=== PATIENT | female | born 1965 | race Caucasian/White ===

== ENCOUNTER 2017-03-25 15:41 | Emergency (ER) | payer MEDICARE, MEDICAID ==
[2017-03-25 15:43] VITALS: BP 119/73; PULSE 76; RESP 16; TEMP 98.1; O2SAT 99
[2017-03-25 16:35] LABS: AUTOMATED NEUTROPHIL # 3.7 TH/MM3 (1.8-7.7); BASOPHIL % 0.8 % (0.0-2.0); EOSINOPHIL # 0.2 TH/MM3 (0-0.4); EOSINOPHIL % 2.6 % (0.0-4.0); HEMATOCRIT 40.8 % (35.0-46.0); HEMO FLAGS DIFF FINAL; LYMPH % 28.6 % (9.0-44.0); LYMPHOCYTE # 1.8 TH/MM3 (1.0-4.8); MEAN CELL VOLUME 86.8 FL (80.0-100.0); MEAN CORPUSCULAR HEMOGLOBIN 28.9 PG (27.0-34.0); MEAN CORPUSCULAR HGB CONC 33.3 % (32.0-36.0); PLATELET COUNT 236 TH/MM3 (150-450); RED CELL DISTRIBUTION WIDTH 13.4 % (11.6-17.2); WHITE BLOOD COUNT 6.1 TH/MM3 (4.0-11.0)
[2017-03-25 16:45] LABS: BLOOD, URINE NEG (NEG); GLUCOSE,URINE NEG (NEG); KETONE, URINE NEG (NEG); NITRITE,URINE NEG (NEG); SQUAMOUS EPITHELIAL CELL URINE <1 /hpf (0-5); URINE COLOR LIGHT-YELLOW (YELLW/STRAW)
[2017-03-25 16:48] LABS: COMMENT (UR) CULT NOT INDICATED; CULTURE IF INDICATED CULT NOT INDICATED
[2017-03-25 17:11] LABS: ANION GAP 6 MEQ/L (5-15); BICARBONATE 30.1 MEQ/L (21.0-32.0); BLOOD UREA NITROGEN 17 MG/DL (7-18); CHLORIDE 103 MEQ/L (98-107); GLOMERULAR FILTRATION RATE 53 ML/MIN (>89); POTASSIUM 4.2 MEQ/L (3.5-5.1); SODIUM (NA) 139 MEQ/L (136-145)
[2017-03-25 17:16] LABS: ALCOHOL LESS THAN 3 MG/DL (0-5)
--- NOTE | 2017-03-25 17:17 | PD ---
HPI Chief Complaint: Anxiety Time Seen by Provider: 17:13 Travel History International Travel<30 days: No Contact w/Intl Traveler<30days: No Traveled to known affect area: No History of Present Illness HPI 52-year-old female with history of bipolar disorder here for evaluation of insomnia, racing thoughts, depression, possible aristides. The patient has not been on any antipsychotic medications for a couple of years. She states that there is a lot going on in her life right now and this may be causing it. Other than that she has no physical complaints. She is not suicidal or homicidal. PFSH Past Medical History Anemia: Yes Bipolar Disorder: Yes Depression: Yes Cancer: No Cardiovascular Problems: No Diabetes: No Diminished Hearing: No Headaches: No Psychiatric: Yes (Schizoaffective Disorder) Seizures: No Menopausal: Yes Past Surgical History Eye Surgery: Yes ( A CHILD) Social History Alcohol Use: Yes Tobacco Use: No Substance Use: Yes Allergies-Medications (Allergen,Severity, Reaction): Coded Allergies: No Known Allergies (Unverified , 10/13/15) Reported Meds & Prescriptions Reported Meds & Active Scripts Active No Active Prescriptions or Reported Medications Review of Systems Except as stated in HPI: all other systems reviewed are Neg Physical Exam Narrative GENERAL: Well-developed, well-nourished, comfortable, no apparent distress. SKIN: Focused skin assessment warm/dry. HEAD: Atraumatic. Normocephalic. EYES: Pupils equal and round. No scleral icterus. No injection or drainage. ENT: Mucous membranes pink and moist. Normal pharynx. Normal external auditory canals and tympanic membranes bilaterally. NECK: Trachea midline. No JVD. CARDIOVASCULAR: Regular rate and rhythm. RESPIRATORY: No accessory muscle use. Clear to auscultation. Breath sounds equal bilaterally. GASTROINTESTINAL: Abdomen soft, non-tender, nondistended. MUSCULOSKELETAL: No obvious deformities. No clubbing. No cyanosis. No edema. NEUROLOGICAL: Awake and alert. No obvious cranial nerve deficits. Motor grossly within normal limits. Normal speech. PSYCHIATRIC: Appropriate mood and affect; insight and judgment normal. Data Data Last Documented VS Vital Signs Date Time Temp Pulse Resp B/P (MAP) Pulse Ox O2 Delivery O2 Flow Rate FiO2 03/25/17 15:43 98.1 76 16 119/73 (88) 99 Orders Orders Complete Blood Count With Diff (03/25/17 16:01) Basic Metabolic Panel (Bmp) (03/25/17 16:01) Urinalysis - C+S If Indicated (03/25/17 16:01) Psych Screen (03/25/17 16:01) Drug Screen, Random Urine (03/25/17 16:01) Alcohol (Ethanol) (03/25/17 16:01) Labs Laboratory Tests Test 03/25/17 16:07 03/25/17 16:10 White Blood Count 6.1 TH/MM3 Red Blood Count 4.70 MIL/MM3 Hemoglobin 13.6 GM/DL Hematocrit 40.8 % Mean Corpuscular Volume 86.8 FL Mean Corpuscular Hemoglobin 28.9 PG Mean Corpuscular Hemoglobin Concent 33.3 % Red Cell Distribution Width 13.4 % Platelet Count 236 TH/MM3 Mean Platelet Volume 8.6 FL Neutrophils (%) (Auto) 61.0 % Lymphocytes (%) (Auto) 28.6 % Monocytes (%) (Auto) 7.0 % Eosinophils (%) (Auto) 2.6 % Basophils (%) (Auto) 0.8 % Neutrophils # (Auto) 3.7 TH/MM3 Lymphocytes # (Auto) 1.8 TH/MM3 Monocytes # (Auto) 0.4 TH/MM3 Eosinophils # (Auto) 0.2 TH/MM3 Basophils # (Auto) 0.0 TH/MM3 CBC Comment DIFF FINAL Differential Comment Blood Urea Nitrogen 17 MG/DL Creatinine 1.07 MG/DL Random Glucose 95 MG/DL Calcium Level 8.9 MG/DL Sodium Level 139 MEQ/L Potassium Level 4.2 MEQ/L Chloride Level 103 MEQ/L Carbon Dioxide Level 30.1 MEQ/L Anion Gap 6 MEQ/L Estimat Glomerular Filtration Rate 53 ML/MIN Ethyl Alcohol Level LESS THAN 3 MG/DL Urine Color LIGHT-YELLOW Urine Turbidity CLEAR Urine pH 5.0 Urine Specific [place] 1.009 Urine Protein NEG mg/dL Urine Glucose (UA) NEG mg/dL Urine Ketones NEG mg/dL Urine Occult Blood NEG Urine Nitrite NEG Urine Bilirubin NEG Urine Urobilinogen LESS THAN 2.0 MG/DL Urine Leukocyte Esterase NEG Urine RBC LESS THAN 1 /hpf Urine WBC LESS THAN 1 /hpf Urine Squamous Epithelial Cells <1 /hpf Microscopic Urinalysis Comment CULT NOT INDICATED Urine Opiates Screen NEG Urine Barbiturates Screen NEG Urine Amphetamines Screen POS Urine Benzodiazepines Screen NEG Urine Cocaine Screen POS Urine Cannabinoids Screen POS MDM Medical Decision Making Medical Screen Exam Complete: Yes Emergency Medical Condition: Yes Differential Diagnosis Bipolar disorder, aristides, depression Narrative Course Vitals are within normal limits. Labs reviewed. UDS is positive for cocaine, amphetamines, cannabinoids. The patient is medically cleared for psychiatric eval and dispo by them Diagnosis Primary Impression: Bipolar 1 disorder Additional Impression: Polysubstance abuse Admitting Information Admitting Physician Requests: Observation Scripts No Active Prescriptions or Reported Meds Livan Morel MD Mar 25, 2017 17:17
[2017-03-25 18:50] VITALS: BP 132/66; PULSE 54; RESP 18; TEMP 98.7; O2SAT 99
[2017-03-26 06:35] VITALS: BP 158/69; PULSE 62; RESP 18; O2SAT 97
[2017-03-26 09:07] VITALS: BP 158/69; PULSE 62; RESP 18; O2SAT 97
[2017-03-26] MEDS ORDERED: PROZ20CA11 PO (09:19)
[2017-03-26] MEDS ORDERED: LITH300C2 PO (09:20)
--- NOTE | 2017-03-26 09:38 | PD ---
Physical Exam Date Seen by Provider: Mar 26, 2017 Time Seen by Provider: 09:36 Narrative Well-developed well-nourished 52-year-old female patient that is psychiatrically cleared for discharge. I was asked to disposition this patient. Data Data Last Documented VS Vital Signs Date Time Temp Pulse Resp B/P (MAP) Pulse Ox O2 Delivery O2 Flow Rate FiO2 03/26/17 09:08 03/26/17 09:07 62 18 97 Room Air 03/25/17 18:50 98.7 Orders Orders Complete Blood Count With Diff (03/25/17 16:01) Basic Metabolic Panel (Bmp) (03/25/17 16:01) Urinalysis - C+S If Indicated (03/25/17 16:01) Psych Screen (03/25/17 16:01) Drug Screen, Random Urine (03/25/17 16:01) Alcohol (Ethanol) (03/25/17 16:01) Diet Regular Basic (03/26/17 Breakfast) Labs Laboratory Tests Test 03/25/17 16:07 03/25/17 16:10 White Blood Count 6.1 TH/MM3 Red Blood Count 4.70 MIL/MM3 Hemoglobin 13.6 GM/DL Hematocrit 40.8 % Mean Corpuscular Volume 86.8 FL Mean Corpuscular Hemoglobin 28.9 PG Mean Corpuscular Hemoglobin Concent 33.3 % Red Cell Distribution Width 13.4 % Platelet Count 236 TH/MM3 Mean Platelet Volume 8.6 FL Neutrophils (%) (Auto) 61.0 % Lymphocytes (%) (Auto) 28.6 % Monocytes (%) (Auto) 7.0 % Eosinophils (%) (Auto) 2.6 % Basophils (%) (Auto) 0.8 % Neutrophils # (Auto) 3.7 TH/MM3 Lymphocytes # (Auto) 1.8 TH/MM3 Monocytes # (Auto) 0.4 TH/MM3 Eosinophils # (Auto) 0.2 TH/MM3 Basophils # (Auto) 0.0 TH/MM3 CBC Comment DIFF FINAL Differential Comment Blood Urea Nitrogen 17 MG/DL Creatinine 1.07 MG/DL Random Glucose 95 MG/DL Calcium Level 8.9 MG/DL Sodium Level 139 MEQ/L Potassium Level 4.2 MEQ/L Chloride Level 103 MEQ/L Carbon Dioxide Level 30.1 MEQ/L Anion Gap 6 MEQ/L Estimat Glomerular Filtration Rate 53 ML/MIN Ethyl Alcohol Level LESS THAN 3 MG/DL Urine Color LIGHT-YELLOW Urine Turbidity CLEAR Urine pH 5.0 Urine Specific [place] 1.009 Urine Protein NEG mg/dL Urine Glucose (UA) NEG mg/dL Urine Ketones NEG mg/dL Urine Occult Blood NEG Urine Nitrite NEG Urine Bilirubin NEG Urine Urobilinogen LESS THAN 2.0 MG/DL Urine Leukocyte Esterase NEG Urine RBC LESS THAN 1 /hpf Urine WBC LESS THAN 1 /hpf Urine Squamous Epithelial Cells <1 /hpf Microscopic Urinalysis Comment CULT NOT INDICATED Urine Opiates Screen NEG Urine Barbiturates Screen NEG Urine Amphetamines Screen POS Urine Benzodiazepines Screen NEG Urine Cocaine Screen POS Urine Cannabinoids Screen POS MDM Supervised Visit with SABRA: Yes Differential Diagnosis Depression versus suicidal ideation versus anxiety versus adjustment disorder versus mood disorder versus bipolar disorder versus schizophrenia versus paranoid disorder versus psychosis versus substance abuse versus alcohol abuse versus alcohol induced psychosis versus homicidality addition versus cutting versus personality disorder Narrative Course 52-year-old female patient in no acute distress denies any physiological complaints at this time. Psychiatrically cleared for discharge. Dr. Burden refilled patient's psychiatric prescriptions. Patient planning to follow up with her personal psychiatrist. He is planning to go to her son's house upon discharge and spend time with her grandson. She states she is not going to go back to the drug house and she will go to support meetings regularly. Patient will be discharged home with this plan of care. Diagnosis Primary Impression: Bipolar 1 disorder Additional Impression: Polysubstance abuse Referrals: [facility] (Out patient) as needed Medication Management [facility] as needed Mental Health and Substance Abuse inpatient facility [facility] Patient Instructions: General Instructions, Bipolar Disorder (ED), Medical Clearance for Psychiatric Care (ED) Departure Forms: Tests/Procedures Additional Instruction: DX: Bipolar Please return to ED if symptoms worsen. Scripts [place] Carbonate ([place] Carbonate) 300 Mg Cap 300 MG PO TID, #90 CAP 0 Refills Prov: Marito Burden MD 03/26/17 Fluoxetine (Prozac) 20 Mg Cap 20 MG PO DAILY, #30 CAP 0 Refills Prov: Marito Burden MD 03/26/17 Disposition: 01 DISCHARGE HOME Condition: Stable Yissel Smith DEVELOPMENTAL MATHEMATICS PROFESSOR Mar 26, 2017 09:38
--- NOTE | 2017-03-26 12:25 | PD ---
History of Present Illness Chief Complaint: Anxiety Time Seen by Provider: 09:15 Travel History International Travel<30 Days: No Contact w/Intl Traveler<30days: No Known affected area: No Legal Status Legal Status: Voluntary History of Present Illness: 52-year-old female came in voluntarily last night to be placed back on her psychotropic medicines and/or admitted. Patient is not however suicidal or homicidal or psychotic. She reports a history of bipolar disorder but she has been using multiple substances. At the time of this evaluation, the patient was demonstrating no psychotic symptoms. It is difficult for this physician to ascertain whether the patient truly has bipolar disorder or is simply reflecting the results of her multiple drug abuse issues. In either event, the patient denies any suicidal or homicidal ideation, plan or intent. She is verbally amilcar for safety and she is competent to do so. She is requesting refills on lithium and Prozac and this physician agrees. She will seek follow up at [facility]. [facility] Past Medical History Anemia: Yes Bipolar Disorder: Yes Depression: Yes Cancer: No Cardiovascular Problems: No Diabetes: No Diminished Hearing: No Headaches: No Psychiatric: Yes (Schizoaffective Disorder) Seizures: No ?: Not Menopausal: Yes Past Surgical History Eye Surgery: Yes ( A CHILD) Psychiatric History Psychiatric History Hx Psychiatric Treatment: HX OF DEPRESSION, BIPOLAR D/O AND SCHIZOAFFECTIVE D/O. LAST ADMISSION WAS TO THE [facility] LAST YEAR. REPORTS THAT IT WAS NOT A GOOD EXPERIENCE AND SHE STAYED A WEEK. DID NOT LIKE TAKING THE SEROQUEL PRESCRIBED. IN THE PAST HAD BEEN ADMITTED TO [place]. FEELS THAT IT WAS ABETTER EXPERIENCE BUT THE LATUDA MADE HER FEEL NAUSEOUS. HAS BEEN ON PROZAC AND LITHIUM IN THE PAST. History of Inpatient Treatment: Yes Guns or firearms in home: No Social History Hx Alcohol Use: Yes Hx Tobacco Use: No Hx Substance Use: Yes (coccaine) Substance Use Type: Alcohol, Crack, Marijuana, Amphetamines-Stimulants Other Substances Used: PT STATED "I SMOKE $120 OF CRACK YESTERDAY" Hx of Substance Use Treatment: No Allergies-Medications (Allergen,Severity, Reaction): Coded Allergies: No Known Allergies (Unverified Adverse Reaction, Unknown, 03/25/17) Reported Meds & Prescriptions Reported Meds & Active Scripts Active [place] Carbonate 300 Mg Cap 300 Mg PO TID Prozac (Fluoxetine HCl) 20 Mg Cap 20 Mg PO DAILY Review of Systems Except as stated in HPI: all other systems reviewed are Neg Mental Status Examination Appearance: Appropriate Consciousness: Alert Orientation: x4 Motor Activity: Normal gait Speech: Rapid Language: Adequate Fund of Knowledge: Adequate Attention and Concentration: Adequate Memory: Unremarkable Mood: Appropriate Affect: Appropriate Thought Process & Associations: Intact Thought Content: Appropriate Hallucination Type: None Delusion Type: None Suicidal Ideation: No Suicidal Plan: No Suicidal Intention: No Homicidal Ideation: No Homicidal Plan: No Homicidal Intention: No Insight: Adequate Judgment: Adequate MDM Medical Decision Making Medical Record Reviewed: Yes Assessment/Plan Patient interviewed at bedside, medical records reviewed and case discussed with nurse Mckenzie. Patient given prescriptions for one-month supply of lithium and Prozac. She again is competent to consent for medicines. She is also amilcar for safety and is competent to do that. As least restrictive alternative applies, the patient is being discharged with follow up at [facility]. Orders Orders Complete Blood Count With Diff (03/25/17 16:01) Basic Metabolic Panel (Bmp) (03/25/17 16:01) Urinalysis - C+S If Indicated (03/25/17 16:01) Psych Screen (03/25/17 16:01) Drug Screen, Random Urine (03/25/17 16:01) Alcohol (Ethanol) (03/25/17 16:01) Diet Regular Basic (03/26/17 Breakfast) Results Vital Signs Date Time Temp Pulse Resp B/P (MAP) Pulse Ox O2 Delivery O2 Flow Rate FiO2 03/26/17 09:08 03/26/17 09:07 62 18 158/69 (98) 97 Room Air 03/26/17 06:35 62 18 158/69 (98) 97 Room Air 03/25/17 18:50 98.7 54 18 132/66 (88) 99 Room Air 03/25/17 18:09 83 83 03/25/17 15:43 98.1 76 16 119/73 (88) 99 Laboratory Tests Test 03/25/17 16:07 03/25/17 16:10 White Blood Count 6.1 Red Blood Count 4.70 Hemoglobin 13.6 Hematocrit 40.8 Mean Corpuscular Volume 86.8 Mean Corpuscular Hemoglobin 28.9 Mean Corpuscular Hemoglobin Concent 33.3 Red Cell Distribution Width 13.4 Platelet Count 236 Mean Platelet Volume 8.6 Neutrophils (%) (Auto) 61.0 Lymphocytes (%) (Auto) 28.6 Monocytes (%) (Auto) 7.0 Eosinophils (%) (Auto) 2.6 Basophils (%) (Auto) 0.8 Neutrophils # (Auto) 3.7 Lymphocytes # (Auto) 1.8 Monocytes # (Auto) 0.4 Eosinophils # (Auto) 0.2 Basophils # (Auto) 0.0 CBC Comment DIFF FINAL Differential Comment Blood Urea Nitrogen 17 Creatinine 1.07 Random Glucose 95 Calcium Level 8.9 Sodium Level 139 Potassium Level 4.2 Chloride Level 103 Carbon Dioxide Level 30.1 Anion Gap 6 Estimat Glomerular Filtration Rate 53 Ethyl Alcohol Level LESS THAN 3 Urine Color LIGHT-YELLOW Urine Turbidity CLEAR Urine pH 5.0 Urine Specific [place] 1.009 Urine Protein NEG Urine Glucose (UA) NEG Urine Ketones NEG Urine Occult Blood NEG Urine Nitrite NEG Urine Bilirubin NEG Urine Urobilinogen LESS THAN 2.0 Urine Leukocyte Esterase NEG Urine RBC LESS THAN 1 Urine WBC LESS THAN 1 Urine Squamous Epithelial Cells <1 Microscopic Urinalysis Comment CULT NOT INDICATED Urine Opiates Screen NEG Urine Barbiturates Screen NEG Urine Amphetamines Screen POS Urine Benzodiazepines Screen NEG Urine Cocaine Screen POS Urine Cannabinoids Screen POS Diagnosis Primary Impression: Polysubstance abuse Referrals: [facility] (Out patient) as needed Medication [facility] as needed Mental Health and Substance Abuse inpatient facility [facility] Departure Forms: Tests/Procedures Patient Instructions: General Instructions, Bipolar Disorder (ED), Medical Clearance for Psychiatric Care (ED) Additional Instructions: DX: Bipolar Please return to ED if symptoms worsen. Prescriptions [place] Carbonate ([place] Carbonate) 300 Mg Cap 300 MG PO TID, #90 CAP 0 Refills Prov: Marito Burden MD 03/26/17 Fluoxetine (Prozac) 20 Mg Cap 20 MG PO DAILY, #30 CAP 0 Refills Prov: Marito Burden MD 03/26/17 Disposition: 01 DISCHARGE HOME Condition: Stable Marito Burden MD Mar 26, 2017 12:25
== END 2017-03-26 11:32 | disposition home or self-care (01) ==
LOC: NEPD 15:41 → NEPJ 03-26 11:32
DX: F19.10 Other psychoactive substance abuse, uncomplicated (principal); F31.9 Bipolar disorder, unspecified; Z79.899 Other long term (current) drug therapy
CPT/HCPCS: 80048; 80307; 81001; 85025; 99284

== ENCOUNTER 2017-10-28 13:35 | Emergency (ER) | payer MEDICARE, MEDICAID ==
[~2017-10-28] VITALS: Ht 162.6 cm; Wt 70.0 kg
[~2017-10-28 13:35] MED LIST: LITH300C2 PO; PROZ20CA11 PO
[2017-10-28 13:44] VITALS: BP 148/67; PULSE 60; RESP 16; TEMP 98; O2SAT 99
--- NOTE | 2017-10-28 15:19 | PD ---
HPI Chief Complaint: Medical Clearance Time Seen by Provider: 15:00 Travel History International Travel<30 days: No Contact w/Intl Traveler<30days: No Traveled to known affect area: No History of Present Illness HPI Patient comes emergency department requesting psychiatric evaluation. Patient states that she feels like she is going through breakdown and has had thoughts of harming herself but states multiple times she would never do this as she is Orthodoxy. Patient denies any history of suicide attempts. Patient states she feels like someone else's in her head telling her to do things like hanging herself. Patient only medical complaint at this time his urinary frequency is gotten worse over the past couple of days. Denies any dysuria, back pain, fevers, abdominal pain, chest pain, or shortness of breath. Denies any pain anywhere. States she has not been on her psych meds for a while now. PFSH Past Medical History Anemia: Yes Bipolar Disorder: Yes Depression: Yes Cancer: No Cardiovascular Problems: No Diabetes: No Diminished Hearing: No Headaches: No Psychiatric: Yes (Schizoaffective Disorder) Seizures: No ?: Not Menopausal: Yes Past Surgical History Eye Surgery: Yes ( A CHILD) Social History Alcohol Use: Yes Tobacco Use: No Substance Use: Yes (coccaine) Allergies-Medications (Allergen,Severity, Reaction): Coded Allergies: No Known Allergies (Unverified Adverse Reaction, Unknown, 03/25/17) Reported Meds & Prescriptions Reported Meds & Active Scripts Active [place] Carbonate 300 Mg Cap 300 Mg PO TID Prozac (Fluoxetine HCl) 20 Mg Cap 20 Mg PO DAILY Review of Systems Except as stated in HPI: all other systems reviewed are Neg Physical Exam Narrative GENERAL: Well-developed, overly nourished, in no acute distress, and non-ill appearing. SKIN: Focused skin assessment warm and dry. HEAD: Atraumatic. Normocephalic. EYES: Pupils equal and round. EOMI. No scleral icterus. No injection or drainage. ENT: No nasal bleeding or discharge. Mucous membranes pink and moist. NECK: Trachea midline. Supple. No nuclear rigidity. CARDIOVASCULAR: Regular rate and rhythm. No murmur appreciated. RESPIRATORY: No accessory muscle use. No respiratory distress. Clear to auscultation. Breath sounds equal bilaterally. GASTROINTESTINAL: Abdomen soft, non-tender, nondistended, and no guarding. Hepatic and splenic margins not palpable. Normal bowel sounds x4. No pulsatile mass. No CVA tenderness MUSCULOSKELETAL: No obvious deformities. No clubbing. No cyanosis. No edema. Full range of motion. NEUROLOGICAL: Awake and alert. No obvious cranial nerve deficits. Motor grossly within normal limits. Normal speech. PSYCHIATRIC: Appropriate mood and affect. Data Data Last Documented VS Vital Signs Date Time Temp Pulse Resp B/P (MAP) Pulse Ox O2 Delivery O2 Flow Rate FiO2 10/28/17 13:44 98.0 60 16 148/67 (94) 99 Orders Orders Complete Blood Count With Diff (10/28/17 15:09) Comprehensive Metabolic Panel (10/28/17 15:09) Thyroid Stimulating Hormone (10/28/17 15:09) Urinalysis - C+S If Indicated (10/28/17 15:09) Psych Screen (10/28/17 15:09) Drug Screen, Random Urine (10/28/17 15:09) Alcohol (Ethanol) (10/28/17 15:09) Salicylates (Aspirin) (10/28/17 15:09) Tylenol (Acetaminophen) (10/28/17 15:09) Labs Laboratory Tests Test 10/28/17 15:13 10/28/17 16:09 White Blood Count 6.2 TH/MM3 Red Blood Count 4.98 MIL/MM3 Hemoglobin 14.3 GM/DL Hematocrit 42.6 % Mean Corpuscular Volume 85.5 FL Mean Corpuscular Hemoglobin 28.8 PG Mean Corpuscular Hemoglobin Concent 33.7 % Red Cell Distribution Width 13.9 % Platelet Count 266 TH/MM3 Mean Platelet Volume 9.0 FL Neutrophils (%) (Auto) 56.1 % Lymphocytes (%) (Auto) 36.5 % Monocytes (%) (Auto) 5.0 % Eosinophils (%) (Auto) 1.6 % Basophils (%) (Auto) 0.8 % Neutrophils # (Auto) 3.5 TH/MM3 Lymphocytes # (Auto) 2.3 TH/MM3 Monocytes # (Auto) 0.3 TH/MM3 Eosinophils # (Auto) 0.1 TH/MM3 Basophils # (Auto) 0.0 TH/MM3 CBC Comment DIFF FINAL Differential Comment Blood Urea Nitrogen 16 MG/DL Creatinine 0.90 MG/DL Random Glucose 78 MG/DL Total Protein 7.4 GM/DL Albumin 3.9 GM/DL Calcium Level 8.8 MG/DL Alkaline Phosphatase 87 U/L Aspartate Amino Transf (AST/SGOT) 14 U/L Alanine Aminotransferase (ALT/SGPT) 20 U/L Total Bilirubin 0.2 MG/DL Sodium Level 140 MEQ/L Potassium Level 4.1 MEQ/L Chloride Level 107 MEQ/L Carbon Dioxide Level 23.7 MEQ/L Anion Gap 9 MEQ/L Estimat Glomerular Filtration Rate 65 ML/MIN Thyroid Stimulating Hormone 3rd Gen 0.660 uIU/ML Salicylates Level 2.3 MG/DL Acetaminophen Level LESS THAN 2.0 MCG/ML Ethyl Alcohol Level LESS THAN 3 MG/DL Urine Color LIGHT-YELLOW Urine Turbidity CLEAR Urine pH 5.5 Urine Specific [place] 1.010 Urine Protein NEG mg/dL Urine Glucose (UA) NEG mg/dL Urine Ketones NEG mg/dL Urine Occult Blood NEG Urine Nitrite NEG Urine Bilirubin NEG Urine Urobilinogen LESS THAN 2.0 MG/DL Urine Leukocyte Esterase NEG Urine WBC LESS THAN 1 /hpf Urine Squamous Epithelial Cells 1 /hpf Urine Mucus FEW /lpf Microscopic Urinalysis Comment CULT NOT INDICATED Urine Opiates Screen NEG Urine Barbiturates Screen NEG Urine Amphetamines Screen NEG Urine Benzodiazepines Screen NEG Urine Cocaine Screen NEG Urine Cannabinoids Screen NEG MDM Medical Decision Making Medical Screen Exam Complete: Yes Emergency Medical Condition: Yes Differential Diagnosis UTI, urinary frequency, metabolic disturbance, acute psychosis, suicidal, homicidal Narrative Course Patient was seen and examined. Labs were obtained and reviewed. Discussed all findings with patient. Patient medically cleared for further treatment and evaluation by psych. Final disposition per psych. Diagnosis Primary Impression: Urinary frequency Additional Impression: Medical clearance for psychiatric admission Referrals: Soren Garcia [facility] Additional Instructions: Follow-up with your primary care doctor and/or urologist regarding urinary frequency. Return to the emergency department symptoms get worse Condition: Stable Joshua Garcia Oct 28, 2017 15:19
[2017-10-28 16:02] LABS: AUTOMATED NEUTROPHIL # 3.5 TH/MM3 (1.8-7.7); BASOPHIL % 0.8 % (0.0-2.0); EOSINOPHIL # 0.1 TH/MM3 (0-0.4); EOSINOPHIL % 1.6 % (0.0-4.0); HEMATOCRIT 42.6 % (35.0-46.0); HEMOGLOBIN 14.3 GM/DL (11.6-15.3); LYMPH % 36.5 % (9.0-44.0); LYMPHOCYTE # 2.3 TH/MM3 (1.0-4.8); MEAN CELL VOLUME 85.5 FL (80.0-100.0); MEAN CORPUSCULAR HEMOGLOBIN 28.8 PG (27.0-34.0); MEAN CORPUSCULAR HGB CONC 33.7 % (32.0-36.0); MONOCYTE # 0.3 TH/MM3 (0-0.9); NEUT % 56.1 % (16.0-70.0); PLATELET COUNT 266 TH/MM3 (150-450); RED BLOOD COUNT 4.98 MIL/MM3 (4.00-5.30); RED CELL DISTRIBUTION WIDTH 13.9 % (11.6-17.2); WHITE BLOOD COUNT 6.2 TH/MM3 (4.0-11.0)
[2017-10-28 16:33] LABS: ALBUMIN 3.9 GM/DL (3.4-5.0); ALKALINE PHOSPHATASE 87 U/L (45-117); ALT (GPT) 20 U/L (10-53); AST (GOT) 14 U/L (15-37); BICARBONATE 23.7 MEQ/L (21.0-32.0); BLOOD UREA NITROGEN 16 MG/DL (7-18); CALCIUM 8.8 MG/DL (8.5-10.1); CHLORIDE 107 MEQ/L (98-107); GLOMERULAR FILTRATION RATE 65 ML/MIN (>89); GLUCOSE,RANDOM 78 MG/DL (74-106); SODIUM (NA) 140 MEQ/L (136-145); TOTAL BILIRUBIN ADULT 0.2 MG/DL (0.2-1.0); TOTAL PROTEIN 7.4 GM/DL (6.4-8.2)
[2017-10-28 16:40] LABS: ACETAMINOPHEN LESS THAN 2.0 MCG/ML (10.0-30.0)
[2017-10-28 16:44] LABS: BILIRUBIN, URINE NEG (NEG); BLOOD, URINE NEG (NEG); GLUCOSE,URINE NEG (NEG); KETONE, URINE NEG (NEG); MUCUS URINE FEW /lpf (OCC); NITRITE,URINE NEG (NEG); PH, URINE 5.5 (5.0-8.5); SQUAMOUS EPITHELIAL CELL URINE 1 /hpf (0-5); URINE COLOR LIGHT-YELLOW (YELLW/STRAW); URINE LEUKOCYTE ESTERASE NEG (NEG)
--- NOTE | 2017-10-28 18:42 | PD ---
History of Present Illness Chief Complaint: Medical Clearance Time Seen by Provider: 17:28 Travel History International Travel<30 Days: No Contact w/Intl Traveler<30days: No Known affected area: No Legal Status Legal Status: Voluntary History of Present Illness: This is a 52-year-old single, female who reports voluntarily to this facility for reportedly "feeling overwhelmed with sadness". Patient is previously known to this facility and has been seen on multiple occasions for polysubstance abuse and bipolar disorder. Reviewed electronic medical record, labs, discussed case with staff. Patient has a negative toxicology screen. Patient was evaluated in her room in the main ED. She was found sitting on the bed awake, alert, and oriented x4 watching television. When asked what brought her in and she states "I am feeling overwhelmed with sadness, I have been crying a lot and my emotions have just been getting the best of me. I have had thoughts of killing myself however I am a Mosque so I would never kill myself". She reports having intermittent memory loss. Her speech today is clear, logical, and organized. Her mood is good and her affect is euthymic throughout most of the interview. However, at one point she does become tearful and irritable stating, "I am crazy ". She endorses suicidal ideation but states that she has no plan nor would she ever consider killing herself. She denies homicidal ideations stating, "I am a humanitarian". She denies auditory or visual hallucinations. Although her speech is slightly rapid and pressured she does not appear to be internally stimulated. Her outburst seems to be more behavioral in nature. She reports that she is on Social Security disability for mental illness however she reports that she "does not take medication". She initially stated this provider that she "have not taken medication in years". However, when it was brought to her attention that she was here in March 2017 where she was provided with prescriptions for lithium and Prozac by the provider at that time she reported feeling the Prozac but stated she stopped taking it because there "were no refills". She lives with her son and his girlfriend and their 2 children and reports that there is some dissension between her and the girlfriend. In discussing his case with staff today to feel the same as I do this is likely the result of a disagreement with the girlfriend. Patient spent the remainder of the visit advising this provider of which facility she would or would not go to and which medications she would or would not take. I asked to speak with her son and initially he was resistant to making excuses however she eventually provided his name and phone number. I reach the son who states that he did note she had been upset today and advised him that she "thought she was going to have a nervous breakdown". He did not seem overly concerned nor did he indicate that he felt she was a danger to herself or anyone else.. PFSH Past Medical History Anemia: Yes Bipolar Disorder: Yes Depression: Yes Cancer: No Cardiovascular Problems: No Diabetes: No Diminished Hearing: No Headaches: No Psychiatric: Yes (Schizoaffective Disorder) Schizophrenia: Yes Seizures: No Influenza Vaccination: No ?: Not Menopausal: Yes Past Surgical History Eye Surgery: Yes ( A CHILD) Psychiatric History Psychiatric History Extensive history of bipolar disorder and polysubstance abuse.. Hx Psychiatric Treatment: HX OF DEPRESSION, BIPOLAR D/O AND SCHIZOAFFECTIVE D/O. LAST ADMISSION WAS TO THE [facility] LAST YEAR. REPORTS THAT IT WAS NOT A GOOD EXPERIENCE AND SHE STAYED A WEEK. DID NOT LIKE TAKING THE SEROQUEL PRESCRIBED. IN THE PAST HAD BEEN ADMITTED TO [facility]. FEELS THAT IT WAS ABETTER EXPERIENCE BUT THE LATUDA MADE HER FEEL NAUSEOUS. HAS BEEN ON PROZAC AND LITHIUM IN THE PAST. History of Inpatient Treatment: Yes Social History Hx Alcohol Use: Yes Hx Tobacco Use: Yes (1/2 PPD) Hx Substance Use: Yes (MARIJUANA) Substance Use Type: Alcohol, Crack, Marijuana, Amphetamines-Stimulants Other Substances Used: Patient claims that she has been clean for 4 months Hx of Substance Use Treatment: No Allergies-Medications (Allergen,Severity, Reaction): Coded Allergies: No Known Allergies (Unverified Adverse Reaction, Unknown, 03/25/17) Reported Meds & Prescriptions Reported Meds & Active Scripts Active [place] Carbonate 300 Mg Cap 300 Mg PO TID Prozac (Fluoxetine HCl) 20 Mg Cap 20 Mg PO DAILY Mental Status Examination Appearance: Disheveled Consciousness: Alert Orientation: x4, Person Motor Activity: Normal gait Speech: Pressured, Rapid Language: Adequate Fund of Knowledge: Adequate Attention and Concentration: Adequate Memory: Impaired (Intermittently per patient's claims) Mood: Appropriate (For most of interview became irritable and tearful when this provider mentioned establishing with an outpatient provider), Good Affect: Appropriate, Euthymic (Read note on mood) Thought Process & Associations: Goal directed (On being admitted) Thought Content: Appropriate Hallucination Type: None Delusion Type: None Suicidal Ideation: Yes (States "I would never kill myself I am a Mosque and a humanitarian".) Suicidal Plan: No Suicidal Intention: No Homicidal Ideation: No Homicidal Plan: No Homicidal Intention: No Insight: Fair Judgment: Impulsive MDM Medical Decision Making Medical Record Reviewed: Yes Assessment/Plan I was informed by the ED nurse that this patient left AGAINST MEDICAL ADVICE. At this point she does not meet Bear act criteria as she gave no indication that she was a danger to herself or anyone else. Orders Orders Complete Blood Count With Diff (10/28/17 15:09) Comprehensive Metabolic Panel (10/28/17 15:09) Thyroid Stimulating Hormone (10/28/17 15:09) Urinalysis - C+S If Indicated (10/28/17 15:09) Psych Screen (10/28/17 15:09) Drug Screen, Random Urine (10/28/17 15:09) Alcohol (Ethanol) (10/28/17 15:09) Salicylates (Aspirin) (10/28/17 15:09) Tylenol (Acetaminophen) (10/28/17 15:09) Results Vital Signs Date Time Temp Pulse Resp B/P (MAP) Pulse Ox O2 Delivery O2 Flow Rate FiO2 10/28/17 13:44 98.0 60 16 148/67 (94) 99 Laboratory Tests Test 10/28/17 15:13 10/28/17 16:09 White Blood Count 6.2 Red Blood Count 4.98 Hemoglobin 14.3 Hematocrit 42.6 Mean Corpuscular Volume 85.5 Mean Corpuscular Hemoglobin 28.8 Mean Corpuscular Hemoglobin Concent 33.7 Red Cell Distribution Width 13.9 Platelet Count 266 Mean Platelet Volume 9.0 Neutrophils (%) (Auto) 56.1 Lymphocytes (%) (Auto) 36.5 Monocytes (%) (Auto) 5.0 Eosinophils (%) (Auto) 1.6 Basophils (%) (Auto) 0.8 Neutrophils # (Auto) 3.5 Lymphocytes # (Auto) 2.3 Monocytes # (Auto) 0.3 Eosinophils # (Auto) 0.1 Basophils # (Auto) 0.0 CBC Comment DIFF FINAL Differential Comment Blood Urea Nitrogen 16 Creatinine 0.90 Random Glucose 78 Total Protein 7.4 Albumin 3.9 Calcium Level 8.8 Alkaline Phosphatase 87 Aspartate Amino Transf (AST/SGOT) 14 Alanine Aminotransferase (ALT/SGPT) 20 Total Bilirubin 0.2 Sodium Level 140 Potassium Level 4.1 Chloride Level 107 Carbon Dioxide Level 23.7 Anion Gap 9 Estimat Glomerular Filtration Rate 65 Thyroid Stimulating Hormone 3rd Gen 0.660 Salicylates Level 2.3 Acetaminophen Level LESS THAN 2.0 Ethyl Alcohol Level LESS THAN 3 Urine Color LIGHT-YELLOW Urine Turbidity CLEAR Urine pH 5.5 Urine Specific [place] 1.010 Urine Protein NEG Urine Glucose (UA) NEG Urine Ketones NEG Urine Occult Blood NEG Urine Nitrite NEG Urine Bilirubin NEG Urine Urobilinogen LESS THAN 2.0 Urine Leukocyte Esterase NEG Urine WBC LESS THAN 1 Urine Squamous Epithelial Cells 1 Urine Mucus FEW Microscopic Urinalysis Comment CULT NOT INDICATED Urine Opiates Screen NEG Urine Barbiturates Screen NEG Urine Amphetamines Screen NEG Urine Benzodiazepines Screen NEG Urine Cocaine Screen NEG Urine Cannabinoids Screen NEG Diagnosis Primary Impression: Adjustment disorder Additional Impressions: Urinary frequency Medical clearance for psychiatric admission Psychiatrically Cleared: Yes Referrals: [facility] Departure Forms: Tests/Procedures Patient Instructions: General Instructions Additional Instructions: Follow-up with your primary care doctor and/or urologist regarding urinary frequency. Return to the emergency department symptoms get worse Med/ Other Pt Specific Info: No Meds Exist/No RX given Disposition: 07 AGAINST MEDICAL ADVICE Condition: Stable Problem Qualifiers Zoie Back Oct 28, 2017 18:42
== END 2017-10-28 18:33 | disposition left against medical advice (07) ==
LOC: NEPD 13:35
DX: F43.20 Adjustment disorder, unspecified (principal); R35.0 Frequency of micturition; F12.90 Cannabis use, unspecified, uncomplicated; F31.9 Bipolar disorder, unspecified; F25.9 Schizoaffective disorder, unspecified; Z79.899 Other long term (current) drug therapy
CPT/HCPCS: 80053; 80307; 81001; 84443; 85025; 99283